=== PATIENT | female | born 1965 | race Caucasian/White ===

== ENCOUNTER 2020-09-02 12:15 | Outpatient (REF) | payer OTHER, SELFPAY ==
--- NOTE | ~2020-09-02 | XR_ITS ---
EXAMINATION: XR CHEST CLINICAL INFORMATION: Right upper quadrant pain COMPARISON: None TECHNIQUE: 2 views of the chest were obtained. FINDINGS: No significant abnormality is noted involving the heart, lungs, mediastinum, bony thorax or soft tissues. XR/XR chest 2V IMPRESSION: Unremarkable examination.
== END 2020-09-02 12:16 | disposition home or self-care (01) ==
LOC: HO.XRAY 12:15
PROVIDERS: PCP Student in an Organized Health Care Education/Training Program; Visit Provider Student in an Organized Health Care Education/Training Program
DX: R10.11 Right upper quadrant pain (principal)
CPT/HCPCS: 71046

== ENCOUNTER 2022-04-27 15:48 | Outpatient (REF) | payer OTHER, SELFPAY ==
--- NOTE | ~2022-04-27 | XR_ITS ---
EXAMINATION: XR SHOULDER, LEFT CLINICAL INFORMATION: Pain. COMPARISON: None TECHNIQUE: Four views of the left shoulder. FINDINGS: No acute fractures or malalignment. Joint spaces are maintained. No abnormal soft tissue calcifications. No significant soft tissue abnormality. XR/XR shoulder LT min 2V IMPRESSION: No acute fractures or malalignment.
[2022-04-27 16:31] LABS: MANUAL DIFF FLAG NO
[2022-04-27 17:15] LABS: Basophils Absolute Auto 0.1 X10*3/uL (0.0-0.2); Basophils Percent Auto 1.1 % (0-2); Eosinophils Absolute Auto 0.1 X10*3/uL (0.0-0.4); Eosinophils Percent Auto 1.6 % (0-4); Hematocrit 37.3 % (37.0-47.0); Hemoglobin 12.6 g/dl (12.0-16.0); Imm Gran Abs Auto 0.03 X10*3/uL (0.00-0.03); Imm Gran Pct Auto 0.4 % (0.0-0.4); Lymphocytes Percent Auto 36.4 % (20-40); Mean Corpuscular HGB Conc 33.8 g/dl (31.0-35.0); Mean Corpuscular Hemoglobin 30.4 pg (27.0-33.0); Mean Corpuscular Volume 89.9 fL (80.0-98.0); Mean Platelet Volume 12.4 fL (9.4-12.3); Monocytes Absolute Auto 0.7 X10*3/uL (0.1-1.2); Monocytes Percent Auto 9.1 % (2-11); Neutrophils Absolute Auto 4.2 x10*3/uL (2.0-8.3); Neutrophils Percent Auto 51.4 % (45-73); Platelet Count 224 X10*3/uL (160-400); Red Blood Count 4.15 X10*6/uL (4.20-5.50); Red Cell Distribution Width 13.1 % (11.0-16.0); White Blood Count 8.2 X10*3/uL (4.8-10.8)
[2022-04-27 18:02] LABS: Alanine Aminotransferase 16 U/L (0-31); Albumin Level 4.4 g/dL (3.5-5.0); Alkaline Phosphatase 63 U/L (39-117); Anion Gap 13 (12-20); Aspartate Amino Transferase 18 U/L (5-31); Bilirubin Total 0.2 mg/dL (0.0-1.0); Blood Urea Nitrogen 15 mg/dL (9-16); Calcium 9.8 mg/dL (8.4-10.2); Carbon Dioxide 30 mmol/L (22-29); Chloride 103 mmol/L (96-108); Estimated Glomerular Filt Rate 58; Glucose Random 100 mg/dL (60-115); Potassium 4.1 mmol/L (3.3-5.1); Sodium 142 mmol/L (135-145); Total Protein 7.1 g/dL (6.5-8.0)
[2022-04-27 18:35] LABS: Thyroid Stimulating Hormone 1.71 uIU/mL (0.32-4.0)
== END 2022-04-27 15:49 | disposition home or self-care (01) ==
LOC: HO.XRAY 15:48
PROVIDERS: Absent Provider Student in an Organized Health Care Education/Training Program; PCP Student in an Organized Health Care Education/Training Program; Referring Provider Physician Assistant; Visit Provider Internal Medicine
DX: R10.11 Right upper quadrant pain (principal); K58.9 Irritable bowel syndrome, unspecified; K76.0 Fatty (change of) liver, not elsewhere classified; M25.512 Pain in left shoulder
CPT/HCPCS: 36415; 73030; 80053; 84443; 85025; 99202

== ENCOUNTER 2022-06-08 09:35 | Outpatient (REF) | payer OTHER, SELFPAY ==
--- NOTE | ~2022-06-08 | US_ITS ---
EXAMINATION: US ABDOMEN LIMITED WITH LIVER ELASTOGRAPHY CLINICAL INFORMATION: Fatty change of liver. COMPARISON: None. TECHNIQUE: Real-time imaging of the abdominal viscera. Noninvasive ultrasound liver fibrosis assessment is performed using [place] [employer]ast[employer] point quantification shear wave elastography (2D-SWE) with a C5-2 MHz transducer. Multiple elastography samples are obtained. FINDINGS: PANCREAS: Normal. The visualized pancreatic head and body are normal in appearance. The remainder of the pancreas is obscured from visualization by the overlying bowel gas. LIVER: The liver demonstrates normal size, contour and echogenicity. No focal lesion or intrahepatic biliary duct dilatation. The right lobe measures 16.5 cm in length. The left lobe measures 9.7 cm in length. Portal flow is hepatopetal Shear wave liver elastography median stiffness is 1.36 m/s (reference: normal median stiffness is 1.3 m/s or less). IQR/median stiffness to assess sampling precision is 0.10 (reference: good quality data set is IQR/median stiffness of 0.15 or less). GALLBLADDER: Normal. The gallbladder is physiologically distended without evidence of stones, sludge, polyps, wall thickening or pericholecystic fluid. COMMON BILE DUCT: Normal in caliber measuring 0.3 cm in diameter. RIGHT KIDNEY: No hydronephrosis. There is an echogenic stone in the lower pole measuring 0.4 and 0.3 cm. The kidney measures 11.0 cm in maximum dimension. FREE FLUID: None. US/US abdomen alvarez w elastography IMPRESSION: 1. Diffuse hepatic steatosis without focal lesion. Nonobstructive echogenic stone in the lower pole measuring 0.4 cm. 2. Liver elastography: Median liver stiffness 1.3 m/s corresponds to high probability normal. REFERENCE: Society of Radiologists in Ultrasound Liver Stiffness Thresholds (2020): LIVER STIFFNESS THRESHOLDS: *Liver Stiffness equal or less than 1.3 m/s: High probability of being normal. *Liver Stiffness less than 1.7 m/s: In the absence of other known clinical signs, rules out compensated advanced chronic liver disease. *Liver Stiffness 1.7-2.1 m/s: Suggestive of compensated advanced chronic liver disease but need further test for confirmation. *Liver Stiffness over 2.1 m/s: Rules in compensated advanced chronic liver disease. *Liver Stiffness over 2.4 m/s: Suggestive of clinically significant portal hypertension. QUALITY OF DATA SET: *IQR/Median value equal or less than 0.15 implies a quality data set. *IQR/Median value over 0.15 implies a poor quality data set. SIGNIFICANT CHANGE FROM PRIOR EXAM: Significant change if liver stiffness measurement is 10% or greater from prior exam. OTHER CONSIDERATIONS: The stage of liver fibrosis may be overestimated in the setting of acute hepatitis, liver inflammation, elevated liver function tests, hepatic vascular congestion, obstructive cholestasis, non-fasting state, and infiltrative diseases such as amyloidosis and lymphoma. In some patients with NAFLD, the liver stiffness thresholds for compensated advanced chronic liver disease may be lower. In causes other than viral hepatitis and NAFLD, liver stiffness thresholds are not well established.
== END 2022-06-08 09:36 | disposition home or self-care (01) ==
LOC: HO.US 09:35
PROVIDERS: Visit Provider Physician Assistant
DX: K76.0 Fatty (change of) liver, not elsewhere classified (principal)
CPT/HCPCS: 76705; 76981

== ENCOUNTER → 2022-06-22 11:06 | Outpatient (BNVA) | payer OTHER, SELFPAY | PROVIDERS: PCP Family Medicine; Visit Provider Physician Assistant | DX: Z13.89 Encounter for screening for other disorder (principal) ==

== ENCOUNTER → 2022-06-29 13:43 | Outpatient (REF) | payer OTHER, SELFPAY ==
--- NOTE | 2022-06-29 13:45 | HM_ITS ---
Conclusion: 1. Patient was monitored for 1 day. 2. Baseline was normal sinus rhythm with average heart of 68 beats per minute 3. No significant pauses or profound bradycardia noted 4. Frequent sinus bradycardia with heart rate below 60 beats per minute about 26% of the time 5. Very rare PACs noted 6. Patient reported 1 event that correlated with sinus rhythm MTDD
== END ==
LOC: HO.CARD 13:43
PROVIDERS: PCP Family Medicine; Visit Provider Family Medicine
DX: R00.2 Palpitations (principal)
CPT/HCPCS: 93225

== ENCOUNTER → 2022-08-09 11:09 | Outpatient (BNVA) | payer OTHER, SELFPAY | PROVIDERS: PCP Student in an Organized Health Care Education/Training Program; Referring Provider Student in an Organized Health Care Education/Training Program; Visit Provider Internal Medicine | DX: R00.2 Palpitations (principal) | CPT/HCPCS: 93005; 99202 ==

== ENCOUNTER → 2022-08-18 07:36 | Outpatient (REF) | payer OTHER, SELFPAY ==
--- NOTE | 2022-08-18 07:38 | CA_ITS ---
Transthoracic Echocardiogram Patient (Last, First, Middle): Virginia Monroy, Gender: Female Date of : 1965 Age: 57 Procedure Date: 08/18/2022 Procedure Type: Transthoracic Echocardiogram Location: OP Height: 165.1 cm Weight: 81.65 kg BSA: 1.89 m2 Heart Rate: 59 bpm BP: 115 / 80 mmHg [employer] Machine Operator: DESMOND Chandler MD: Eduar Tipton MD Mill Turner: Erlin Aguilar MD Symptoms: R00.2 - Palpitations Study Quality: Fair ECG Rhythm: Bradycardia Conclusions: - Essentially normal study Findings Left Ventricle Normal left ventricular size, thickness, and systolic function. The visually estimated ejection fraction is between 60-65%. Regional wall motion abnormalities can not be excluded due to suboptimal endocardial definition. Spectral Doppler is indicative of a normal filling pattern. Right Ventricle Normal right ventricular cavity size and systolic function. Atria Both atria are normal in size. Interatrial shunt cannot be excluded. Aortic Valve Normal aortic valve structure and function. There is no aortic valve stenosis. There is no aortic valve regurgitation. Mitral Valve Normal mitral valve structure and function. There is trace mitral valve regurgitation. There is no mitral valve stenosis. Pulmonic Valve The pulmonic valve was not well visualized. Tricuspid Valve Likely normal tricuspid valve structure and function. There is trace tricuspid valve regurgitation. The right ventricular systolic pressure is normal. The right ventricular systolic pressure is 14 mmHg. Normal right atrial pressure. There is no evidence of pulmonary hypertension. Great Vessels All visible segments of the aorta are normal in size. The pulmonary artery was not well visualized. Venous The inferior vena cava is normal in size and collapses greater than 50% with inspiration. Pericardium/Pleural There is no evidence of pericardial effusion. Prior Study Comparison No prior study available for comparison. Recommendations, Care & Conclusions Recommend contrast in the future to improve endocardial definition. Measurements 2D Linear Measurements IVSd: 0.91 0.6-0.9/0.6-1.0 cm LVIDd: 4.59 3.9-5.3/4.2-5.9 cm LVIDd Index: 2.43 2.4-3.2/2.2-3.1 cm/m2 LVIDs: 2.75 2.0-3.6 cm LVPWd: 0.90 0.7-1.1 cm LA Diam: 3.00 2.7-3.8/3.0-4.0 cm LAIDs Index: 1.59 1.5-2.3 cm/m2 LV Mass: 171.80 67-162/88-224 g LV Mass Index: 90.90 43-95/49-115 g/m2 LVOT Diam: 1.80 3.0+(-)1.3 cm 2D Systolic Function EF 4C: 65.30 >55% EF 2C: 61.50 >55% EF BiP: 64.30 >55% Mitral Valve MV Pk E: 0.77 MV PK A: 0.56 MV Decel Time: 223.00 E/A: 1.40 E'Lateral: 14.00 E'Medial: 8.27 E/E' Med: 9.30 E/E' Lat: 5.50 PHT: 65.00 MVA PHT: 3.38 Decel Ripley: 3.44 Aortic Valve AoV Pk Isael: 1.20 AoV Mn Isael: 0.80 AoV VTI: 0.27 AoV Pk Grad: 6.00 Aov Mn Grad: 3.00 JUDAH Cont.VTI: 2.00 LVOT LVOT Pk Isael: 1.06 LVOT Mn Isael: 0.64 LVOT VTI: 0.21 LVOT Pk Grad: 4.00 LVOT Mn Grad: 2.00 LVOT Diam: 1.80 LVOT Area: 2.54 Diastolic Function MV Pk E: 0.77 MV Pk A: 0.56 E/A: 1.40 E'Medial: 8.27 E/E' Med: 9.30 E' Laterial: 14.00 E/E' Lat: 5.50 Right Ventricle TAPSE (mm): 18.30 TVS' Isael: 9.57 Tricuspid Valve TR Pk Isael: 1.64 TR Pk Grad: 11.00 RA Press: 3.00 RVSP: 14.00 Great Vessels Aorta Sinus of Valsalva: 3.00 2.0-3.5 cm Ao Asc: 2.60 2.1-3.4 cm Pulmonary Valve PV Pk Isael: 0.99 Peak PV Grad: 4.00 Updated in Other Vendor System with Status of Final Erlin Aguilar MD electronically signed on 08/18/2022 10:54:49 AM with status of Final
== END ==
LOC: HO.CARD 07:36
PROVIDERS: Visit Provider Internal Medicine
DX: R00.2 Palpitations (principal)
CPT/HCPCS: 93306

== ENCOUNTER 2022-12-19 10:26 | Outpatient (REF) | payer MEDICAID, SELFPAY ==
--- NOTE | ~2022-12-19 | XR_ITS ---
EXAMINATION: XR HIP, RIGHT CLINICAL INFORMATION: Pain. COMPARISON: [facility] of 08/17/2016. TECHNIQUE: Two views of the right hip. FINDINGS: There is no evidence of acute fracture or dislocation of the right hip. Right hip joint space is maintained. There is collar spurring present. There is calcification of the greater trochanter. No abnormal lytic or sclerotic lesions identified. XR/XR hip RT min 2V IMPRESSION: Degenerative change of the right hip without evidence of fracture or significant joint space narrowing. Calcific trochanteritis.
== END 2022-12-19 10:27 | disposition home or self-care (01) ==
LOC: HO.XRAY 10:26
PROVIDERS: PCP Student in an Organized Health Care Education/Training Program; Visit Provider General Practice
DX: M25.511 Pain in right shoulder (principal)
CPT/HCPCS: 73502

== ENCOUNTER 2024-03-26 10:50 | Outpatient (REF) | payer MEDICAID, SELFPAY ==
[2024-03-26 16:33] LABS: Estimated Average Glucose 131 mg/dL; Hemoglobin A1C 148.9438 umol/L; Hemoglobin A1c % 6.2 % (<6.0)
[2024-03-26 18:12] LABS: Alanine Aminotransferase 15 U/L (0-31); Albumin Level 4.2 g/dL (3.5-5.0); Alkaline Phosphatase 61 U/L (39-117); Anion Gap 9 (12-20); Aspartate Amino Transferase 16 U/L (5-31); Bilirubin Direct 0.2 mg/dL (0.0-0.5); Bilirubin Total 0.6 mg/dL (0.0-1.0); Blood Urea Nitrogen 10 mg/dL (9-16); Calcium 9.4 mg/dL (8.4-10.2); Carbon Dioxide 28 mmol/L (22-29); Chloride 108 mmol/L (96-108); Cholesterol 206 mg/dL (<200); Estimated Glomerular Filt Rate > 60; Glucose Random 132 mg/dL (60-115); HDL Cholesterol 47 mg/dL (>40); LDL Cholesterol Calculated 133 mg/dL (<100); Potassium 3.9 mmol/L (3.3-5.1); Sodium 141 mmol/L (135-145); Triglycerides 133 mg/dL (<150)
== END 2024-03-26 10:51 | disposition home or self-care (01) ==
LOC: HO.CHCLDS 10:50
PROVIDERS: Visit Provider Student in an Organized Health Care Education/Training Program
DX: E11.9 Type 2 diabetes mellitus without complications (principal)
CPT/HCPCS: 36415; 80048; 80061; 80076; 83036